=== PATIENT | male | born 1945 | race Caucasian/White ===

== ENCOUNTER 2018-03-24 14:02 | Emergency (ER) | payer OTHER | END 2018-03-24 14:38 | disposition home or self-care (01) | LOC: ERS 14:02 | DX: T16.2XXA Foreign body in left ear, initial encounter (principal); I10 Essential (primary) hypertension | CPT/HCPCS: 69200 ==

== ENCOUNTER 2018-11-30 11:44 | Observation (INO) | payer MEDICARE, OTHER ==
[2018-11-30 12:14] LABS: #Eosinphils 0.1 thou/uL (0.0-0.7); #Lymphocytes 2.3 thou/uL (1.20-3.40); #Monocytes 0.5 thou/uL (0.11-0.59); #Neutrophils 3.5 thou/uL (1.40-6.50); %Basophils 0.4 % (0.0-1.0); %Eosinophils 1.2 % (0.0-10.0); %Lymphocytes 36.1 % (21.0-51.0); %Monocytes 8.3 % (0.0-10.0); %Neutrophils 54.1 % (42.0-75.0); Hemoglobin 15.4 g/dL (14.0-18.0); Mean Corpuscular HGB CONC 34.6 g/dL (32.0-36.0); Mean Corpuscular Hemoglobin 32.1 pg (27.0-31.0); Mean Corpuscular Volume 92.7 fL (78.0-98.0); Mean Platelet Volume 6.3 fL (7.4-10.4); Platelet Count 202 thou/uL (130-400); Red Blood Cell (RBC) Count 4.78 mill/uL (4.70-6.10); White Blood Cell (WBC) Count 6.5 thou/uL (4.8-10.8)
--- NOTE | 2018-11-30 12:30 | RAD ---
PORTABLE CHEST ONE VIEW: 11/30/2018 12:09 p.m. HISTORY: Chest pain. FINDINGS: The heart size is normal. The aorta is tortuous. No lobar consolidation, pneumothoraces, or pleural effusions are seen. IMPRESSION: No acute process. POS: [facility]
[2018-11-30 12:33] LABS: ALT (SGPT) 30 U/L (8-55); AST (SGOT) 18 U/L (5-34); Albumin 4.7 g/dL (3.4-4.8); Alkaline Phosphatase 91 U/L (40-150); Anion Gap 12 mmol/L (10-20); BUN (Urea Nitrogen) 22 mg/dL (8.4-25.7); Bilirubin, Total 0.6 mg/dL (0.2-1.2); Calc. Creatinine Clearance 0 mL/min (70-130); Carbon Dioxide 23 mmol/L (23-31); Chloride 107 mmol/L (98-107); Estimated GFR-MDRD 77; Glucose 94 mg/dL (83-110); Potassium 4.4 mmol/L (3.5-5.1); Protein, Total 6.7 g/dL (5.8-8.1); Sodium 138 mmol/L (136-145)
--- NOTE | 2018-11-30 13:16 | CT ---
EXAM: CT chest abdomen with contrast following aortogram protocol: INDICATIONS: Chest pain. Assess for dissection. COMPARISON: None. FINDINGS: Thoracic and abdominal aorta appear unremarkable. No evidence of aneurysm. No evidence of d issection. Aortic branches including celiac artery, sputum mesenteric artery, and renal arteries are unremarkable. Lung june show mild bibasilar haziness suggesting atelectasis. Mediastinum unremarkable. Proximal pulmonary arteries are opacified and there is no evidence of proxi mal pulmonary embolus. Liver, spleen, pancreas, adrenal glands, and kidneys unremarkable. Visualized bowel loops unremarkabl e. IMPRESSION: No evidence of thoracic or abdominal aortic aneurysm or dissection.
[2018-11-30] MEDS ORDERED: Aspirin 325 MG TAB ONE (13:51)
[2018-11-30 15:26] LABS: Troponin I Less than 0.010 ng/mL (< 0.028)
[2018-11-30] MEDS ORDERED: Ondansetron ODT 4 MG TAB PO PRN (15:54)
[2018-11-30] MEDS ORDERED: Nitroglycerin 0.4 MG TAB (25 Tab Bottle) PO PRN (15:54)
[2018-11-30] MEDS ORDERED: HYDROcodone/Acetaminophen 5/325 mg Tablet PO PRN (15:54)
[2018-11-30] MEDS ORDERED: Bisacodyl 10 MG SUPP PR PRN (15:54)
[2018-11-30] MEDS ORDERED: Acetaminophen 325 MG TAB PO PRN ×2 (15:54→15:57)
[2018-11-30] MEDS ORDERED: Ondansetron PF 4 MG/2 ML Vial IVP PRN (15:54)
[2018-11-30] MEDS ORDERED: Senokot S 8.6-50 MG TAB PO PRN (15:54)
[2018-11-30 16:04] VITALS: BMI 26.1
[2018-11-30 16:17] VITALS: TEMP 97.5
--- NOTE | 2018-11-30 16:42 | HP ---
PRIMARY CARE PHYSICIAN: Dr. Tapan Anderson. CHIEF COMPLAINT: Chest pain. HISTORY OF PRESENT ILLNESS: A 73-year-old male patient with known history of hypertension, hyperlipidemia, and arthritis presenting with acute onset of anterior midsternal chest pain with radiation to the back. Symptoms started about 30 minutes prior to presentation to the emergency room where the patient bended over to cut his nails. Chest pain at its maximum intensity was rated at 9/10 and it persisted till arrival to the emergency room. The patient has not had this similar pain before. There was no associated shortness of breath, palpitation, nausea, vomiting, diaphoresis, numbness, abdominal pain, cough, dizziness, leg swelling, dysuria or hematuria. The patient was treated with aspirin 324 mg. By the time I reviewed, the patient's chest pain has resolved completely. The patient reported prior to that he was only having chest pain with respiratory effort. EKG x2 performed was negative for acute ischemic changes. CT scan of the chest aortic dissection protocol was also negative. The patient is admitted for further risk stratification. PAST MEDICAL HISTORY: 1. Hypertension. 2. Hyperlipidemia. 3. Gout. 4. Osteoarthritis. PAST SURGICAL HISTORY: 1. Bilateral shoulder surgery. 2. Left proximal leg surgery. FAMILY HISTORY: Significant for congestive heart failure in mother. SOCIAL HISTORY: The patient lives with spouse. He is a former smoker, but quit more than 40 years ago. He denied recreational drug use. Occasionally takes alcohol. The patient wants to be full code. Spouse is the surrogate decision maker. ALLERGIES: NO KNOWN DRUG ALLERGIES REPORTED. HOME MEDICATIONS: The patient takes the following. 1. Lipitor. 2. Lisinopril. 3. Meloxicam. 4. Centrum. 5. Allopurinol. Dose of these medication, however, is unclear at this time. REVIEW OF SYSTEMS: 12-point review of system performed was negative other than pertinent positives and negatives included in the history of present illness. PHYSICAL EXAMINATION: VITAL SIGNS: Initial vitals on presentation showed BP 145/85, pulse 60, respiratory rate 18, temperature 97.8, SpO2 96 on room air. Most current vitals showed BP 144/95, pulse 51, respiratory rate 18, SpO2 of 97 on room air. GENERAL: Healthy-looking elderly male, in no distress. Afebrile. Anicteric. Acyanotic. HEENT: Normocephalic, atraumatic. Pupils are reacting to light. Oral mucosa is moist. NECK: Supple, nontender with full range of motion. No masses or lymphadenopathy appreciated. CARDIOVASCULAR: Regular rhythm and rate, but bradycardic. Normal. heart sounds one and two. No obvious murmur was appreciated. RESPIRATORY: Good air entry bilaterally with no obvious crackle or rhonchi or use of accessory muscles. GI: Full, soft, nontender, nondistended with normal bowel sounds. EXTREMITIES: Grossly normal looking atraumatic with no obvious edema, erythema, or cyanosis. Distal pulses are palpable. NEUROLOGIC: Conscious and alert, oriented x3 with appropriate mental status. Cranial nerves 2 through 12 are grossly intact. The patient moves all extremities. DIAGNOSTIC DATA: CBC did show WBC count of 6.5, hemoglobin of 15.4, MCV of 92.7, platelet of 202. BMP showed sodium 138, potassium 4.4, chloride 107, CO2 of 23, BUN 22, creatinine 0.95, glucose 94, calcium 10.0, total bilirubin 0.6, AST 18, ALT 30, alkaline phosphatase 91, total protein 6.7, albumin 4.7, globulin 2.0. Troponin x2 were less than 0.010. EKG x2 showed sinus bradycardia with rate of 57 and 58. Q-wave in V1 and V2 noted. Chest x-ray showed normal-sized heart with tortuous aorta, but no lobar consolidation, pneumothorax or pleural effusion. CT scan of the chest for dissection showed no evidence of thoracic or abdominal aortic dissection or aneurysm. ASSESSMENT: 1. Atypical chest pain. Symptoms have resolved completely. The patient is currently chest pain free. However, the patient has some risk factors which include hyperlipidemia, hypertension, and age of 73. The patient also had remote history of smoking, but that is more than 40 years ago. We will rule out acute DC with serial troponin. We will follow up with nuclear stress test for further risk stratification given increased risk factors. 2. Hypertension: We will continue lisinopril once dose is established. 3. Hyperlipidemia: We will also continue statin once we know the exact dose. 4. Gout: We will continue allopurinol. 5. Diet as tolerated. 6. DVT prophylaxis with Lovenox will be commenced. 7. Code status: Full. The patient's spouse is the surrogate decision maker. Job ID: [id number]
[2018-11-30 16:45] VITALS: BP 156/78
[2018-11-30] MEDS ORDERED: ISOVUE-370 76%-LOCM 1 ML ONE (16:49)
[2018-11-30 18:53] LABS: Troponin I Less than 0.010 ng/mL (< 0.028)
[2018-11-30] MEDS ORDERED: Famotidine 20 MG TAB PO SCH (21:00)
[2018-11-30] MEDS ORDERED: Famotidine/PF 20 mg/2ml Vial SLOW IVP SCH (21:00)
[2018-12-01] MEDS ORDERED: Aspirin 325 mg Enteric Coated Tablet PO SCH (09:00)
[2018-12-01] MEDS ORDERED: Enoxaparin Sodium 40 MG/0.4 ML SYRINGE SC SCH (09:00)
--- NOTE | 2018-12-05 15:34 | DIS ---
DATE OF ADMISSION: 11/30/2018 DATE OF DISCHARGE: 11/30/2018 PRIMARY CARE PHYSICIAN: Tapan Anderson MD DISCHARGE DIAGNOSES: 1. Atypical chest pain. 2. Hypertension. 3. Hyperlipidemia. 4. Gout. 5. Osteoarthritis. HOSPITAL COURSE: A 73-year-old male with known history of hypertension, hyperlipidemia, and arthritis, admitted with acute onset of anterior mid sternal chest pain with radiation to the back. There was a concern about aortic aneurysm/rupture; hence, the patient was evaluated with CT aortic protocol, which was unremarkable. The patient was treated with aspirin with resolution of symptoms. Given his increased risk factors, he was admitted for further risk stratification. However, the patient decided to leave against medical advice and left before stress test could be performed. Job ID: [id number]
== END 2018-11-30 19:07 | disposition left against medical advice (07) ==
LOC: ERS 11:44 → 2SW 14:48
PROVIDERS: ADMIT Internal Medicine Nephrology; ATTEND Internal Medicine Nephrology
DX: R07.89 Other chest pain (principal); I10 Essential (primary) hypertension; E78.5 Hyperlipidemia, unspecified; M10.9 Gout, unspecified; M19.90 Unspecified osteoarthritis, unspecified site; Z79.899 Other long term (current) drug therapy; Z87.891 Personal history of nicotine dependence
CPT/HCPCS: 71045; 71275; 80053; 84484 ×2; 85025; 93005; 94760; 99285; G0378 ×2; 36415; Q9966

== ENCOUNTER 2020-12-06 07:30 | Emergency (ER) | payer MEDICARE, OTHER ==
[2020-12-06] MEDS ORDERED: Ketorolac Tromethamine 30 MG/ML VIAL ONE (08:27)
[2020-12-06] MEDS ORDERED: HYDROcodone/Acetaminophen 5/325 mg Tablet ONE (08:27)
[2020-12-06] MEDS ORDERED: Cyclobenzaprine 10 MG TAB ONE ×2 (08:28→08:30)
[2020-12-06 09:12] LABS: #Eosinphils 0.1 thou/uL (0.0-0.7); #Lymphocytes 1.8 thou/uL (1.20-3.40); #Monocytes 0.7 thou/uL (0.11-0.59); #Neutrophils 10.7 thou/uL (1.40-6.50); %Eosinophils 0.4 % (0.0-10.0); %Lymphocytes 13.6 % (21.0-51.0); %Monocytes 5.3 % (0.0-10.0); %Neutrophils 80.7 % (42.0-75.0); Hemoglobin 14.8 g/dL (14.0-18.0); Mean Corpuscular HGB CONC 32.8 g/dL (32.0-36.0); Mean Corpuscular Hemoglobin 31.4 pg (27.0-31.0); Mean Corpuscular Volume 95.7 fL (78.0-98.0); Mean Platelet Volume 6.1 fL (7.4-10.4); Platelet Count 224 thou/uL (130-400); RBC Distribution Width 12.2 % (11.5-14.5); Red Blood Cell (RBC) Count 4.71 mill/uL (4.70-6.10); White Blood Cell (WBC) Count 13.3 thou/uL (4.8-10.8)
[2020-12-06 09:27] LABS: ALT (SGPT) 22 U/L (8-55); AST (SGOT) 14 U/L (5-34); Albumin 4.5 g/dL (3.4-4.8); Alkaline Phosphatase 96 U/L (40-110); Anion Gap 14 mmol/L (10-20); BUN (Urea Nitrogen) 29 mg/dL (8.4-25.7); Bilirubin, Total 0.6 mg/dL (0.2-1.2); Calc. Creatinine Clearance 0 mL/min (70-130); Carbon Dioxide 24 mmol/L (23-31); Chloride 105 mmol/L (98-107); Globulin 2.5 g/dL (2.4-3.5); Glucose 112 mg/dL (83-110); Potassium 4.2 mmol/L (3.5-5.1); Sodium 139 mmol/L (136-145)
[2020-12-06] MEDS ORDERED: predniSONE 20 MG TAB ONE (10:50)
== END 2020-12-06 11:00 | disposition home or self-care (01) ==
LOC: ERS 07:30
DX: M50.30 Other cervical disc degeneration, unspecified cervical region (principal); E78.5 Hyperlipidemia, unspecified; I10 Essential (primary) hypertension; M10.9 Gout, unspecified; Z87.891 Personal history of nicotine dependence; Z79.899 Other long term (current) drug therapy
CPT/HCPCS: 36415; 72125; 80053; 85025; 96372; J1885; J7512

== ENCOUNTER 2021-03-04 09:11 | Outpatient (CLI) | payer MEDICARE | END 2021-03-04 09:12 | disposition home or self-care (01) | LOC: TBSIIMAG 09:11 | PROVIDERS: ATTEND Neurological Surgery | DX: M54.2 Cervicalgia (principal); M47.812 Spondylosis without myelopathy or radiculopathy, cervical region; M48.02 Spinal stenosis, cervical region; M25.78 Osteophyte, vertebrae | CPT/HCPCS: 72040; 72141 ==

== ENCOUNTER 2021-08-24 21:14 | Emergency (ER) | payer MEDICARE ==
[2021-08-24] MEDS ORDERED: Ketorolac Tromethamine 30 MG/ML VIAL ONE (22:18)
== END 2021-08-24 22:39 | disposition home or self-care (01) ==
LOC: ERS 21:14
DX: H60.92 Unspecified otitis externa, left ear (principal); E78.5 Hyperlipidemia, unspecified; I10 Essential (primary) hypertension; M10.9 Gout, unspecified; Z87.891 Personal history of nicotine dependence; Z79.899 Other long term (current) drug therapy
CPT/HCPCS: 96372; 99282; J1885

== ENCOUNTER 2022-02-17 09:55 | Emergency (ER) | payer MEDICARE ==
[2022-02-17 10:23] LABS: #Eosinphils 0.1 thou/uL (0.0-0.7); #Monocytes 0.7 thou/uL (0.11-0.59); #Neutrophils 5.6 thou/uL (1.40-6.50); %Basophils 0.3 % (0.0-1.0); %Eosinophils 1.6 % (0.0-10.0); %Neutrophils 66.1 % (42.0-75.0); Hemoglobin 14.4 g/dL (14.0-18.0); Mean Corpuscular HGB CONC 33.4 g/dL (32.0-36.0); Mean Corpuscular Hemoglobin 32.1 pg (27.0-31.0); Mean Corpuscular Volume 96.3 fl (78.0-98.0); Mean Platelet Volume 6.5 fL (7.4-10.4); Platelet Count 196 thou/uL (130-400); RBC Distribution Width 11.9 % (11.5-14.5); Red Blood Cell (RBC) Count 4.49 mill/uL (4.70-6.10); White Blood Cell (WBC) Count 8.5 thou/uL (4.8-10.8)
[2022-02-17 10:45] LABS: ALT (SGPT) 31 U/L (8-55); AST (SGOT) 18 U/L (5-34); Albumin 4.3 g/dL (3.4-4.8); Alkaline Phosphatase 94 U/L (40-110); Anion Gap 10 mmol/L (10-20); BUN (Urea Nitrogen) 30 mg/dL (8.4-25.7); Bilirubin, Total 0.7 mg/dL (0.2-1.2); Calc. Creatinine Clearance 0 mL/min (70-130); Calcium 9.7 mg/dL (7.8-10.44); Carbon Dioxide 26 mmol/L (23-31); Chloride 104 mmol/L (98-107); Estimated GFR 88; Globulin 2.5 g/dL (2.4-3.5); Glucose 107 mg/dL (83-110); Lipase 107 U/L (8-78); Potassium 4.7 mmol/L (3.5-5.1); Protein, Total 6.8 g/dL (5.8-8.1); Sodium 135 mmol/L (136-145)
== END 2022-02-17 13:34 | disposition home or self-care (01) ==
LOC: ERS 09:55
DX: S09.90XA Unspecified injury of head, initial encounter (principal); M25.512 Pain in left shoulder; E78.5 Hyperlipidemia, unspecified; I10 Essential (primary) hypertension; W19.XXXA Unspecified fall, initial encounter; Z87.891 Personal history of nicotine dependence
CPT/HCPCS: 36415; 70450; 72125; 80053; 83690; 84484; 85025; 93005; 94760